=== PATIENT | male | born 2005 | race Two or more races ===

== ENCOUNTER 2024-11-20 14:47 | Emergency (ER) | payer OTHER ==
[~2024-11-20] VITALS: Ht 180.3 cm; Wt 72.6 kg
[2024-11-20] MEDS ORDERED: KETOROLAC TROMETHAMINE 30 MG VIAL IV STA (15:24)
[2024-11-20] MEDS ORDERED: MORPHINE SULFATE 4 MG/ML CARTRIDGE IV STA (15:25)
[2024-11-20] MEDS ORDERED: MIDAZOLAM HCL/PF 5 MG/ML VIAL IV ONE (16:15)
[2024-11-20] MEDS ORDERED: FLUMAZENIL 1MG/10ML VIAL IV ONE (16:15)
== END 2024-11-20 17:07 | disposition home or self-care (01) ==
LOC: ER 14:50
DX: M24.411 Recurrent dislocation, right shoulder (principal); Z91.018 Allergy to other foods; Z91.013 Allergy to seafood